=== PATIENT | male | born 1955 | race Caucasian/White ===

== ENCOUNTER 2016-10-24 23:21 | Emergency (ER) | payer OTHER ==
[~2016-10-24] VITALS: Ht 182.9 cm; Wt 127.0 kg
[2016-10-24 23:22] VITALS: BP 133/72; PULSE 83; RESP 18; TEMP 97.7; O2SAT 97
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
[2016-10-25] MEDS ORDERED: IBUPROFEN 800 MG TAB PO ONE (01:00)
== END 2016-10-25 01:33 | disposition home or self-care (01) ==
LOC: NEPB 23:21
DX: S80.11XA Contusion of right lower leg, initial encounter (principal); M79.604 Pain in right leg; W50.1XXA Accidental kick by another person, initial encounter; V28.2XXA Unspecified motorcycle rider injured in noncollision transport accident in nontraffic accident, initial encounter; Y93.9 Activity, unspecified; Y92.9 Unspecified place or not applicable; Y99.8 Other external cause status
CPT/HCPCS: 73600; 73630; 99284; E0113